=== PATIENT | male | born 1970 | race Caucasian/White ===

== ENCOUNTER 2018-10-24 04:31 | Emergency (ER) | payer MEDICARE, OTHER ==
[~2018-10-24] VITALS: Ht 193 cm; Wt 136.0 kg
[2018-10-24] MEDS ORDERED: ondansetron 4mg rapidly disintigrating tab PO ONE ×2 (04:55→06:15)
[2018-10-24] MEDS ORDERED: meclizine 12.5mg tablet PO ONE (05:10)
[2018-10-24] MEDS ORDERED: diazepam 5mg tablet PO ONE ×2 (06:15→06:50)
[2018-10-24] MEDS ORDERED: diazepam 2mg tablet PO ONE (06:35)
[2018-10-24] MEDS ORDERED: MECL-111 PO (06:47)
[2018-10-24] MEDS ORDERED: DIAZ2TAB PO (06:47)
[2018-10-24 07:12] VITALS: BP 160/100
== END 2018-10-24 07:05 | disposition home or self-care (01) ==
LOC: ER 04:33
DX: R42 Dizziness and giddiness (principal); R11.2 Nausea with vomiting, unspecified; Z88.0 Allergy status to penicillin; Z79.899 Other long term (current) drug therapy
CPT/HCPCS: 99284; J8597